=== PATIENT | male | born 1975 | race Caucasian/White ===

== ENCOUNTER 2023-03-18 09:16 | Outpatient (OUT) | payer BC, SELFPAY ==
--- NOTE | 2023-03-18 09:35 | US_ITS ---
The [address] [address] Patient Name: RHINA CHIANG MRN: [id number] date: 1975 Sex: M Assigned Patient Location: US Current Patient Location: US Accession/Order Number: [id number] Exam Date: 03/18/2023 09:32 Report Date: 03/18/2023 10:26 At the request of: SUDHAKAR DAVIS Procedure: US abdomen limited EXAMINATION: US abdomen limited HISTORY: Cellulitis Of Umbilicus L03.316 ; tender lump superior to umbilicus for one week COMPARISON: No relevant comparison available. FINDINGS: Subtle irregularity adjacent the umbilicus, 1.0 x 0.9 cm; possible small hernia. IMPRESSION: 1. Mild inflammatory changes versus tiny periumbilical hernia. Consider follow-up CT abdomen pelvis without contrast during and without Valsalva maneuver if symptoms persist. Electronically authenticated by: CLYDE WOODS Date: 03/18/2023 10:26
== END 2023-03-18 09:17 ==
PROVIDERS: PCP Internal Medicine; Visit Provider Internal Medicine
DX: L03.316 Cellulitis of umbilicus (principal)
CPT/HCPCS: 76705

== ENCOUNTER 2023-09-15 14:55 | Outpatient (OUT) | payer BC, SELFPAY ==
--- NOTE | 2023-09-15 15:03 | XR_ITS ---
[address] [address] Patient Name: RHINA CHIANG MRN: [id number] date: 1975 Sex: M Assigned Patient Location: [facility] Current Patient Location: Accession/Order Number: [id number] Exam Date: 09/15/2023 15:19 Report Date: 09/16/2023 02:11 At the request of: SUDHAKAR DAVIS Procedure: XR ribs RT min 3V w CXR1V EXAMINATION: XR ribs RT min 3V w CXR1V HISTORY: Right Sided Chest Wall Pain R07.89 ; right back pain since falling several days ago COMPARISON: No relevant comparison available. FINDINGS: LUNGS: No significant pulmonary parenchymal abnormalities. PLEURA: No pneumothorax, effusion, or pleural thickening. MEDIASTINUM: No visible mass or adenopathy. CARDIAC: No cardiomegaly or cardiac silhouette abnormality. RIBS: Nondisplaced fracture of anterior lateral right 5th rib. OTHER: Negative. XR/XR ribs RT min 3V w CXR1V IMPRESSION: 1. Acute, nondisplaced fracture of anterior lateral right 5th rib. 2. No pneumothorax or pleural effusion. Electronically authenticated by: CLYDE WOODS Date: 09/16/2023 02:11
== END 2023-09-15 14:56 | disposition home or self-care (01) ==
LOC: RAD 14:58
PROVIDERS: PCP Internal Medicine; Visit Provider Internal Medicine
DX: R07.89 Other chest pain (principal); S22.31XA Fracture of one rib, right side, initial encounter for closed fracture
CPT/HCPCS: 71101

== ENCOUNTER 2024-04-20 09:32 | Outpatient (OUT) | payer BC, SELFPAY ==
--- NOTE | 2024-04-20 09:48 | XR_ITS ---
The [address] [address] Patient Name: RHINA CHIANG MRN: [id number] date: 1975 Sex: M Assigned Patient Location: LAB Current Patient Location: LAB Accession/Order Number: [id number] Exam Date: 04/20/2024 10:03 Report Date: 04/20/2024 11:24 At the request of: SUDHAKAR DAVIS Procedure: XR chest 2V EXAMINATION: XR chest 2V HISTORY: Nicotine Dependence, Dyspnea COMPARISON: All TECHNIQUE: PA and lateral FINDINGS: LUNGS: No significant pulmonary parenchymal abnormalities. VASCULATURE: No increased pulmonary vasculature. PLEURA: No pneumothorax, effusion, or pleural thickening. CARDIAC: No cardiomegaly or cardiac silhouette abnormality. MEDIASTINUM: No visible mass or adenopathy. BONES: No fracture or visible bone lesion. OTHER: Negative. XR/XR chest 2V IMPRESSION: No acute cardiopulmonary process Electronically authenticated by: RHINA DIEGO Date: 04/20/2024 11:24
[2024-04-20 10:17] LABS: Basophils Absolute Auto 0.1 10^3/uL (0.0-0.1); Basophils Percent Auto 1.7 % (0.2-2.0); Eosinophils Absolute Auto 0.4 10^3/uL (0.0-0.7); Eosinophils Percent Auto 8.3 % (0.9-7.0); Hematocrit 44.4 % (42.0-54.0); Hemoglobin 15.6 g/dL (14.0-18.0); Immature Granulocytes Abs Auto 0.01 10^3/uL (0.00-0.03); Immature Granulocytes Pct Auto 0.2 % (0.0-0.5); Lymphocytes Absolute Auto 1.5 10^3/uL (1.2-3.8); Lymphocytes Percent Auto 27.6 % (20.5-60.0); Mean Corpuscular HGB Conc 35.1 g/dL (29.9-35.2); Mean Corpuscular Hemoglobin 34.7 pg (25.9-34.0); Mean Corpuscular Volume 98.7 fL (80.0-94.0); Mean Platelet Volume 10.2 fL (9.5-13.5); Monocytes Absolute Auto 0.7 10^3/uL (0.3-0.8); Monocytes Percent Auto 13.8 % (1.7-12.0); Neutrophils Absolute Auto 2.6 10^3/uL (1.4-6.5); Neutrophils Percent Auto 48.4 % (43.0-75.0); Platelet Count 189 10^3/uL (150-450); Red Cell Distribution Width 14.1 % (11.0-15.0); White Blood Count 5.3 10^3/uL (4.0-11.0)
[2024-04-20 11:58] LABS: Alanine Aminotransferase 105 U/L (16-63); Albumin Globulin Ratio 1.1; Albumin Level 4.1 g/dL (3.4-5.0); Alkaline Phosphatase 102 U/L (46-116); Anion Gap 12.8; Aspartate Amino Transferase 85 U/L (15-37); BUN Creatinine Ratio 13.3; Bilirubin Total 0.6 mg/dL (0.2-1.0); Carbon Dioxide 27.3 mmol/L (21.0-32.0); Chloride 104 mmol/L (98-107); Chol HDL Ratio 4.9; Cholesterol 326 mg/dL (<=200); Estimated GFR (African America >60 (>=60); Estimated GFR (Non-African Ame >60 (>=60); Globulin 3.8 g/dL; Glucose 100 mg/dL (74-106); HDL Cholesterol 67 mg/dL (40-60); Potassium 4.1 mmol/L (3.5-5.1); Sodium 140 mmol/L (136-145); Thyroid Stimulating Hormone 2.403 uIU/mL (0.358-3.740); Total Protein 7.9 g/dL (6.4-8.2); Triglycerides 204 mg/dL (<=150); VLDL CHOLESTEROL 40.8 mg/dL
== END 2024-04-20 09:33 | disposition home or self-care (01) ==
PROVIDERS: PCP Internal Medicine; Visit Provider Internal Medicine
DX: Z00.00 Encounter for general adult medical examination without abnormal findings (principal); R06.00 Dyspnea, unspecified; R14.0 Abdominal distension (gaseous); K21.9 Gastro-esophageal reflux disease without esophagitis; R53.83 Other fatigue; F17.200 Nicotine dependence, unspecified, uncomplicated
CPT/HCPCS: 36415; 71046; 80053; 80061; 83690; 84443; 85025

== ENCOUNTER 2024-04-26 08:54 | Outpatient (OUT) | payer BC, SELFPAY ==
--- NOTE | 2024-04-26 09:01 | US_ITS ---
[address] [address] Patient Name: RHINA CHIANG MRN: [id number] date: 1975 Sex: M Assigned Patient Location: US Current Patient Location: Accession/Order Number: [id number] Exam Date: 04/26/2024 09:30 Report Date: 04/26/2024 14:49 At the request of: SUDHAKAR DAVIS Procedure: US right upper quadrant EXAMINATION: US right upper quadrant HISTORY: Abdominal Bloating, Nausea, Elevated Liver Enzymes COMPARISON: No relevant comparison available. TECHNIQUE: Transabdominal evaluation of the right upper quadrant. FINDINGS: LIVER: Fatty infiltration. No suspicious lesion. PORTAL VEIN: Duplex Doppler demonstrates normal hepatopetal flow pattern with flow velocity averaging 40 cm/s. GALLBLADDER: No visible gallstones, wall thickening, or pericholecystic free fluid. Negative sonographic Alfredo's sign. BILIARY: No abnormal dilation or stones. Common bile duct diameter is within normal limits. PANCREAS: No visible mass, abnormal atrophy, or duct dilation. KIDNEY: No hydronephrosis. No visible mass or stones. Size: 11.0 x 5.3 x 6.0 cm US/US right upper quadrant IMPRESSION: 1. Fatty infiltration of liver. Otherwise unremarkable right upper quadrant. Electronically authenticated by: CLYDE WOODS Date: 04/26/2024 14:49
--- OUTSIDE RECORDS SUMMARY | 2024-04-26 09:15 | XMS_ITS | CCD ---
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 feels weak from pain with difficulty lifting overhead. Discussed subacromial injection and PT but he requested referral. No obvious provoking injury or activity. He participates in the [facility] and opiates were not prescribed. Adrienne Ramirez 03/18/2023 02:09:11 PM >received today, faxed P2P Clinical Notes Include latest offic e note [facility] Other Summary Purpose Family History Relationship Condition Age at Onset Recorded Date/T luis father Unknown mother Heart disease Unknown Malignant neoplasm Unknown Advance Directives Advance Directive Response Recorded Date/ Time Advance Directives No February 06 8:36am Advance Directive Response Recorded Date/ Time Advance Directives No February 06 7:36am Chief Complaint and Reason for Visit Chief Complaint Fall-Back Chief Complaint Dizzyness, SOB, Fati nicole Reason for Visit Wellness examination Additional Source Comments (unrecognized sect ion and content) No Status Records FoundNo Status Records FoundNo Status Records Found INFORMATION SOURCE (unrecogn ized section and content) DATE CREATED AUTHOR 04/01/2018 [facility] DATE CREATED AUTHOR AUTHOR'S ORGANIZ ATION 02/23/2023 [facility] DATE CREATED AUTHOR AUTHOR'S ORGANIZ ATION 11/19/2023 [facility] REASON FOR VISIT (unrecogniz ed section and content) shoulder painMRI IssuesMRIRe ferral?Medication ConcernherniaherniaRight Shoulder PainxanaxXR resultsRIGHT HAND INJURY FROM DOG BITE Care Teams (unrecognized sec tion and content) Team Status: Active Member Role Status Dates Jarred Davis DO Primary Care Provider Active Team Status: Inactive Member Role Status Dates Jarred Davis DO Primary Care Provider Active Kevin Epstein MD Attending Provider Active Team Status: Inactive Member Role Status Dates Jarred Davis DO Attending Provider Active Sta rt: September 15, 2023 End: September 15, 2023 Team Status: Inactive Member Role Status Dates Jarred Davis DO Primary Care Provider Active Start: November 04, 2023 End: November 04, 2023 Celi Pizano APRN Attending Provider Active Start: November 04, 2023 End: November 04, 2023 Team Status: Inactive Member Role Status Dates Jarred Davis DO Primary Care Provide r, Attending Provider Active Start: April 19, 2024 End: April 19, 2024 Goals (unrecognized section and content) Goals may be documented in a n alternate section FOR RECORDS PERTAINING TO PATIENTS WHO ARE OR HAVE BEEN ENROLLED IN A CHEMICAL DEPENDENCY/SUBSTANCEABUSE PROGRAM, SOME INFORMATION MAY BE OMITTED. This clinical summary was aggregated from multiple sources. Caution should be exercised in using it in the provision of clinical care. This summary normalizes information from multiple sources, and as a consequence, information in this document may materially change the coding, format and clinical context of patient data. In addition, data may be omitted in some cases. CLINICAL DECISIONS SHOULD BE BASED ON THE PRIMARY CLINICAL RECORDS. [facility]. provides no warranty or guarantee of the accuracy or completeness of information in this document.
== END 2024-04-26 08:55 | disposition home or self-care (01) ==
LOC: US 08:54
PROVIDERS: PCP Internal Medicine; Visit Provider Internal Medicine
DX: R14.0 Abdominal distension (gaseous) (principal); R11.0 Nausea; R74.8 Abnormal levels of other serum enzymes
CPT/HCPCS: 76705